=== PATIENT | female | born 1955 | race Caucasian/White ===

== ENCOUNTER 2016-06-15 18:09 | Emergency (ER) | payer MEDICAID ==
[2016-06-15 18:19] VITALS: BP 106/66; PULSE 78; RESP 18; TEMP 99; O2SAT 96
--- NOTE | 2016-06-15 18:32 | UCPHY ---
H & P Patient Type: Established Chief Complaint Nursing Narrative: door slammed on foot injury small toe and foot Time Seen by Provider: 06/15/16 18:22 HPI/ROS: Chief complaint: Right foot pain HPI: Patient had a heavy dorsally against her right foot earlier today. She has pain on her right pinky toe. Has been ambulating with some discomfort. Does have prior injuries to the same site. ROS: 10 point Review of Systems is negative except as noted in the HPI. Allergies: No known drug allergies Exam: General: Awake, alert, no acute distress Right lower extremity: Ankle has no tenderness, full range of motion without pain. Right foot she has tenderness over the proximal phalanx of her right 5th toe. She has no midfoot tenderness. Sensations intact. Cap refills less than 3 seconds. - Medical/Surgical History Other PMH: SIBO - Family History Significant Family History: No pertinent family hx - Social History Smoking Status: Never smoked Constitutional: Initial Vital Signs Temperature (C) 37.2 C 06/15/16 18:17 Heart Rate 78 06/15/16 18:17 Respiratory Rate 18 06/15/16 18:17 Blood Pressure 106/66 06/15/16 18:17 O2 Sat (%) 96 06/15/16 18:17 O2 Delivery Mode Room Air Allergies/Adverse Reactions: No Known Allergies Allergy (Unverified 08/12/15 09:01) Home Medications: Medication Instructions Recorded NK [No Known Home Meds] 08/12/15 Medical Decision Making - Diagnostics Imaging Results: Imaging Impressions Foot X-Ray 06/15/16 18:32 Impression: 1. Subacute anatomically aligned fracture proximal phalanx fifth toe. 2. Hallux valgus deformity and minimal osteoarthritis. Imaging: I viewed and interpreted images myself ED Course/Re-evaluation: X-ray shows a subacute fracture of her proximal phalanx. She will be placed in orthopedic shoe. Follow up with her primary care physician. Departure - Departure Disposition: Home, Routine, Self-Care Clinical Impression: Fractured toe Condition: Good Instructions: Toe Fracture (ED) Additional Instructions: Follow up with primary care physician in about a week. Referrals: NONE *PRIMARY CARE P,. [Primary Care Provider] - As per Instructions - PQRS PQRS Measurement: NA
== END 2016-06-15 19:37 | disposition home or self-care (01) ==
LOC: CED 18:09
DX: S92.514A Nondisplaced fracture of proximal phalanx of right lesser toe(s), initial encounter for closed fracture (principal); W23.1XXA Caught, crushed, jammed, or pinched between stationary objects, initial encounter; Y92.019 Unspecified place in single-family (private) house as the place of occurrence of the external cause
CPT/HCPCS: 73630-PO; 99214-PO; G0463-PO; L3260

== ENCOUNTER 2017-06-05 13:03 | Observation (INO) | payer MEDICAID ==
[2017-06-05] MEDS ORDERED: BACITRACIN ZINC 14.2 GM OINTTUBE TP ONE (13:42)
[2017-06-05] MEDS ORDERED: EPINEPHrine 30 MG/30 ML MDV (0.1 MG/0.1 ML) ONE (13:43)
[2017-06-05] MEDS ORDERED: LIDOCAINE 1% 300 MG/30 ML SDV ONE (13:43)
[2017-06-05] MEDS ORDERED: METHYLENE BLUE 0.5% 50 MG/10 ML AMP ONE (13:43)
--- NOTE | 2017-06-05 13:43 | PDANEPAE ---
ANE Past Medical History - Cardiovascular History Hx Hypertension: No Hx Arrhythmias: No Hx Chest Pain: No Hx Coronary Artery / Peripheral Vascular Disease: No Hx CHF / Valvular Disease: No Hx Palpitations: No - Pulmonary History Hx COPD: No Hx Asthma/Reactive Airway Disease: Yes Hx Recent Upper Respiratory Infection: No Hx Oxygen in Use at Home: No Hx Sleep Apnea: Yes Sleep Apnea Screening Result - Last Documented: Positive Pulmonary History Comment: asthma enviromental allergens - Neurologic History Hx Cerebrovascular Accident: No Hx Seizures: No Hx Dementia: No - Endocrine History Hx Diabetes: No Hypothyroid: No Hyperthyroid: No Obesity: no - Renal History Hx Renal Disorders: No - Liver History Hx Hepatic Disorders: No - Neurological & Psychiatric Hx Hx Neurological and Psychiatric Disorders: Yes Neurological / Psychiatric History Comment: depression,anxiety chronic - Cancer History Hx Cancer: No - Congenital Disorder History Hx Congenital Disorders: No - GI History GERD: moderate Hx Gastrointestinal Disorders: Yes Gastrointestinal History Comment: Gerd,small intestinal bacteria overgrowth - Other Health History Other Health History: nose bleeds. briuses easily. pt find it hard to sit up on own r/t back pain - Chronic Pain History Chronic Pain: Yes (lower back,neck,) - Surgical History Prior Surgeries: none ANE Review of Systems Review of Systems: - Exercise capacity METS (RN): 3 METS ANE Patient History - Allergies Allergies/Adverse Reactions: enviromental Allergy (Mild, Uncoded 05/31/17 12:30) Other-Enter Comments - Home Medications Home Medications: Multivitamins 05/31/17 [Last Taken 1 Week Ago ~05/29/17] Tylenol 325mg (*) 05/31/17 [Last Taken 06/04/17] - Anes Hx Anes Hx: no prior problems - Smoking Hx Smoking Status: Former smoker - Alcohol Use Alcohol Use: Rarely - Family Anes Hx Family Anes Hx: neg - N/A Family Hx Anesthesia Complications: none ANE Labs/Vital Signs - Vital Signs Height: 152.4 cm Weight: 58.967 kg ANE Physical Exam - Airway Neck exam: FROM Mallampati Score: Class 2 Mouth exam: poor dentition - Pulmonary Pulmonary: no respiratory distress, no rales or rhonchi, clear to auscultation - Cardiovascular Cardiovascular: regular rate and rhythym, no murmur, rub, or gallop ANE Anesthesia Plan Anesthesia Plan: general endotracheal anesthesia Total IV Anesthesia: No
[2017-06-05] MEDS ORDERED: LR 1,000 ML IV ONE (13:50)
[2017-06-05] MEDS ORDERED: LIDOCAINE 1% 2 ML INJ ID PRN (13:50)
--- NOTE | 2017-06-05 14:24 | CPEKG ---
Heart Rate: 67 RR Interval: 896 P-R Interval: 152 QRSD Interval: 74 QT Interval: 412 QTC Interval: 435 P [place]: 30 QRS [place]: 14 T Wave [place]: 42 EKG Severity - NORMAL ECG - EKG Impression: SINUS RHYTHM Electronically Signed By: Violeta Long 05-Jun-2017 19:27:45
[2017-06-05] MEDS ORDERED: ceFAZolin 2 GM/SWFI 2 GM/20 ML SYR IVP ONE (15:12)
--- NOTE | 2017-06-05 15:16 | PDHPUP ---
History & Physical Update H&P update statement: This history and physical update is based on an assessment of the patient which was completed after admission or registration (within 24 hours), but prior to the surgery/procedure. H&P update: H&P reviewed & patient examined (EKG done preop, ok per anesthesia)
[2017-06-05] MEDS ORDERED: MIDAZOLAM 2 MG/2 ML VIAL IVP ONE (15:23)
[2017-06-05] MEDS ORDERED: MIDAZOLAM 2 MG/2 ML VIAL ONE (15:24)
[2017-06-05] MEDS ORDERED: fentaNYL 100 MCG/2 ML INJ ONE ×2 (15:33→17:14)
[2017-06-05] MEDS ORDERED: PROPOFOL 200 MG/20 ML VIAL ONE (15:36)
[2017-06-05] MEDS ORDERED: LIDOCAINE 2% 5 ML SDV ONE (15:37)
[2017-06-05] MEDS ORDERED: ROCURONIUM 50 MG/5 ML VIAL ONE (15:38)
[2017-06-05] MEDS ORDERED: ONDANSETRON 4 MG/2 ML VIAL ONE (15:38)
[2017-06-05] MEDS ORDERED: DEXAMETHASONE 4 MG/ML VIAL ONE ×2 (15:39)
[2017-06-05] MEDS ORDERED: PHENYLEPHRINE HCL 100 MCG/ML SYR ONE (15:51)
[2017-06-05] MEDS ORDERED: HYDROCODONE/APAP 5/325 TAB PO PRN (16:29)
[2017-06-05] MEDS ORDERED: LR 500 ML IV PRN (16:29)
[2017-06-05] MEDS ORDERED: oxyCODONE IR 5 MG TAB PO PRN (16:29)
[2017-06-05] MEDS ORDERED: MEPERIDINE 25 MG/ML SYR IVP PRN (16:29)
[2017-06-05] MEDS ORDERED: fentaNYL 100 MCG/2 ML INJ IVP PRN (16:29)
[2017-06-05] MEDS ORDERED: epHEDrine SULFATE 10 MG/ML SYR IVP PRN (16:29)
[2017-06-05] MEDS ORDERED: PROMETHAZINE HCL 25 MG/ML INJ IVP PRN (16:29)
[2017-06-05] MEDS ORDERED: NALOXONE HCL 0.4 MG/ML INJ IVP PRN (16:29)
[2017-06-05] MEDS ORDERED: PHENYLEPHRINE HCL 100 MCG/ML SYR IVP PRN (16:29)
[2017-06-05] MEDS ORDERED: ONDANSETRON 4 MG/2 ML VIAL IVP PRN ×2 (16:29→19:31)
[2017-06-05] MEDS ORDERED: ACETAMINOPHEN 500 MG TAB PO PRN (16:29)
[2017-06-05] MEDS ORDERED: NEOSTIGMINE METHYLSULFATE 3 MG/3 ML SYR ONE (16:58)
[2017-06-05] MEDS ORDERED: GLYCOPYRROLATE 0.2 MG/1 ML VIAL ONE ×2 (16:59)
[2017-06-05] MEDS ORDERED: ESMOLOL HCL 100 MG/10 ML VIAL IV ONE (17:12)
--- NOTE | 2017-06-05 17:21 | POSTOPPROG ---
Post Op Note Date of Operation: 06/05/17 Surgeon: America Hazel Anesthesiologist: Luiz Wright MD Anesthesia: GET(General Endotracheal) Pre-op Diagnosis: nasal obstruction, RACQUEL Post-op Diagnosis: same Procedure: septoplasty, SMR turbs, endoscopy Findings: DNS L, ITH B, SALES REPRESENTATIVE SALES MANAGER clear Inf/Abcess present in the surg proc area at time of surgery?: No Depth: Superfical (Skin SQ) EBL: Minimal Complications: none apparent
--- NOTE | 2017-06-05 17:28 | POSTANESTH ---
Post Anesthetic Evaluation Cardiovascular Status: Normal, Stable Respiratory Status: Normal, Stable Level of Consciousness/Mental Status: Can Participate in Eval Pain Control: Adequate, Prn Tx Ordered Nausea/Vomiting Control: Adequate, Prn Tx Ordered Complications Possibly Related to Anesthesia: None Noted
--- NOTE | 2017-06-05 18:29 | CPEKG ---
Heart Rate: 93 RR Interval: 645 P-R Interval: 160 QRSD Interval: 80 QT Interval: 376 QTC Interval: 468 P [place]: 47 QRS [place]: 25 T Wave [place]: 16 EKG Severity - NORMAL ECG - EKG Impression: SINUS RHYTHM Electronically Signed By: Violeta Long 05-Jun-2017 19:27:54
[2017-06-05] MEDS ORDERED: ACETAMINOPHEN 325 MG TAB PO PRN (19:31)
[2017-06-05] MEDS ORDERED: NITROGLYCERIN 0.4 MG BTL SL PRN (19:33)
--- NOTE | 2017-06-05 20:03 | GHP ---
[f rep st] HISTORY AND PHYSICAL DATE OF ADMISSION: 06/05/2017 CHIEF COMPLAINT: Chest pain. HISTORY OF PRESENT ILLNESS: The patient is a 62-year-old female, who was having sinus surgery with Radha Hazel today. While in recovery, she started to complain of some chest pain. She describes it a s a left-sided chest pressure, which she still has at this time. She has had this pain in the past, although this episode is much more severe than her typical. She may have had a cardiac stress test m any years ago. This chest pressure gets worse with exertion such as walking up a flight of stairs. It does not radiate. She denies any shortness of breath. The pain is worse with deep inspiration. In the past, she had always attributed it to her lung disease and did not think it was her heart. PAST MEDICAL HISTORY: 1. Obstructive sleep apnea, CPAP intolerant. 2. COPD. 3. Small bowel bacterial overgrowth. MEDICATIONS: Please see computer record for full detailed list. ALLERGIES: No known drug allergies. SOCIAL HISTORY: Former smoker, quit many years ago. No alcohol. She lives with her daughter. REVIEW OF SYSTEMS: Complete review of systems obtained. Review of systems negative for constitution al, HEENT, GI, pulmonary, cardiovascular, , hematology, skin, musculoskeletal, endocrine, psych, ex cept for positives and negatives as in HPI. FAMILY HISTORY: Reviewed and noncontributory to presenting complaint. PHYSICAL EXAMINATION: GENERAL: Well-developed, well-nourished female in no acute distress. VITAL S IGNS: Temperature 36.8, pulse 94, blood pressure 128/75, saturating 96% on 10 L. She is still in an esthesia recovery. EYES: Normal conjunctivae. Pupils equal and react light. ENT: Normal ears and nose. Hearing intact. Normal teeth. Oropharynx moist. NECK: Trachea midline. No thyromegaly. CHEST: Normal respiratory effort. LUNGS: Clear to auscultation bilaterally. CARDIOVASCULAR: Regu lar rate and rhythm. No murmur. No extremity edema. ABDOMEN: Soft, nontender. No hepatosplenomeg helena. SKIN: Warm, dry, intact without rash. MUSCULOSKELETAL: No cyanosis or clubbing. Strength 5/ 5 upper and lower extremities. NEUROLOGIC: Cranial nerves intact. Normal sensation to light touch. PSYCH: Awake, alert, and oriented x3. Normal mood and affect. Normal judgment and insight. Norm al memory. IMAGING PROCEDURE: EKG reviewed by me. My personal interpretation is normal sinus rhythm, no ST-T w ave changes. Troponin is negative. This case was discussed with Dr. Hazel. She planned for outpa tient procedure with prolonged recovery observation due to obstructive sleep apnea. ASSESSMENT AND PLAN: 1. Chest pain. She has a concerning history of chest heaviness that gets worse with exertion and be tter with rest. Now having recurrence of this pain postoperatively worse than her baseline. Her EKG does not show any evidence of ST-elevation myocardial infarction or acute ischemic change. We will observe her and get serial troponins. We will try to get her chest pain-free with sublingual nitrogl ycerin and IV morphine as needed. I will hold off on aspirin due to her very recent postoperative st ate. We will check a lipid panel in the morning. The chest pain also has a pleuritic component. Wi ll check a chest x-ray and a D-dimer. Could consider working her up for pulmonary embolism. We will check a lipid panel in the morning. 2. Obstructive sleep apnea. She has been intolerant of CPAP but hopeful that this sinus surgery may improve that. 3. Status post sinus surgery. This was discussed with Dr. Hazel. This is an outpatient procedure and she can discharge home once her cardiac workup is complete. 4. Chronic obstructive pulmonary disease, not on home oxygen. She has quit tobacco. She does not a ppear to be having an exacerbation at this time. CODE STATUS: Full. ADMISSION STATUS: Will admit to observation. Reevaluate tomorrow for ongoing need for hospitalizati on. DVT PROPHYLAXIS: She is low risk and recently postop, so we will hold off on pharmacologic prophylax is at this time. /[id number]/MODL
[2017-06-05] MEDS: oxyCODONE IR 5 MG TAB PO PRN ×2 (21:22→22:15)
[2017-06-06 04:50] LABS: PLATELET COUNT 295 10^3/uL (150-400)
[2017-06-06] MEDS: oxyCODONE IR 5 MG TAB PO PRN ×2 (05:51→14:07)
--- NOTE | 2017-06-06 10:22 | HOSPPROG ---
Hospitalist Progress Note Assessment/Plan: 62-year-old admitted by Dr. Gonzalez for sinus surgery developed chest pain postop and is admitted for observation for further evaluation of that. She continues to have some pleuritic chest pain with deep breathing. This is been present previous to this admission intermittently that she 0 has always attributed to her lungs. She has remote history of asthma and was on inhalers briefly while living in [place] # chest pain. Ongoing symptoms with negative troponins and normal EKG makes this unlikely to be cardiac, however she will get an evaluation prior to discharge. She has a negative D-dimer which makes symptomatic PE unlikely as well * Nuclear stress test scheduled later today * Will need to follow up with her primary care provider for further evaluation of her chest pain * Will do a trial of proton pump inhibitor for possible esophagitis # history of COPD # obstructive sleep apnea, intolerant of CPAP Subjective: Patient has a migraine and will let me turn the lights on, she complains of some discomfort in her anterior chest with deep breathing. Objective: Vital Signs Temp Pulse Resp BP Pulse Ox 37.2 C 76 16 98/64 L 96 06/06/17 08:00 06/06/17 08:00 06/06/17 08:00 06/06/17 08:00 06/06/17 08:00 Laboratory Results 06/06/17 04:18 06/06/17 04:18 06/05/17 06/06/17 06/07/17 05:59 05:59 05:59 Intake Total 1950 Output Total 20 Balance 1930 - Physical Exam Constitutional: chronically ill appearing Eyes: PERRL, EOMI Ears, Nose, Mouth, Throat: moist mucous membranes Cardiovascular: regular rate and rhythym, no murmur, rub, or gallop Respiratory: no respiratory distress, clear to auscultation Gastrointestinal: normoactive bowel sounds, soft, non-tender abdomen Genitourinary: no bladder fullness Skin: normal color Neurologic: AAOx3 Psychiatric: interacting appropriately, not anxious ICD10 Worksheet Patient Problems: Problems Problem Status Onset Chest pain Acute - ICD10 Problem Qualifiers (1) Chest pain Qualifiers: Chest pain type: other chest pain Qualified Code(s): R07.89 - Other chest pain; R07.8 - Other chest pain
[2017-06-06] MEDS ORDERED: PANTOPRAZOLE SODIUM 40 MG TAB PO SCH (10:30)
[2017-06-06 13:59] VITALS: BP 98/58
--- NOTE | 2017-06-06 15:13 | ASDISCHSUM ---
Discharge Information Plan Status:Home with No Needs Medically Cleared to Leave:06/06/2017 Discharge Date:06/06/2017 CM D/C Disposition:Home, Routine, Self-Care ADT D/C Disposition: Projected Discharge Date:06/06/2017 Transportation at D/C: Discharge Delay Reason: Follow-Up Date:06/06/2017 Discharge Slot: Final Diagnosis: Placement Information Patient Contact Information Contact Name:NEGRO Relationship:Daughter Address:[address] [place] [address] [id number] Work Phone: City:[place] Alternate Phone: State/Zip Code:[place] [address] Email: Financial Information Financial Class:Medicaid Primary Plan 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 Comorbidities - select Answers: Chronic pulmonary disease all that apply Other Notes: Small bowel bacterial overgrowth, obstructive sleep apnea, DPAP intolerant # of Emergency department Answers: 1-2 visits in the last 6 months Score: 4 Date Signed: 06/06/2017 03:09 PM Electronically Signed By:Naya Ruggiero RN Case Management Discharge Plan Note Case Management Discharge Discharge Order Complete? Answers: Yes Patient to Obtain Answers: Independently Medications Discharge Comments Notes: 06/06/2017 Case Management Note Met w/pt during rounds this morning. Pt was admitted for chest pain after undergoing a sinus surgery. There are no case management d/c needs identified. Pt was living independently prior to admission. Case Management d/c poc: independent with follow up as directed. Date Signed: 06/06/2017 03:12 PM Electronically Signed By:Naya Ruggiero RN Intervention Information
--- NOTE | 2017-06-06 15:22 | GDS ---
[f rep st] DISCHARGE SUMMARY DIAGNOSES: 1. Atypical chest pain. 2. Sinus surgery. 3. History of reactive airways disease. 4. Chronic obstructive pulmonary disease. 5. Obstructive sleep apnea, continuous positive airway pressure intolerant. 6. History of small bowel bacterial overgrowth. PROCEDURES DONE: Sinus surgery. HOSPITAL COURSE: The patient is a 62-year-old with a history noted above, who is admitted by Dr. Flavio pepper for a day surgery for sinus surgery. Postoperatively, she was complaining of some pleuritic aashish st pain. She was observed overnight. Her telemetry remained normal. She had a nonischemic EKG and her troponins were negative. She is essentially ruled out for any ischemia and she continues to have pleuritic chest pain, which makes this unlikely to be cardiac. She also had a negative D-dimer. Up on further questioning, she said she has had intermittent pain like this in the past that she has alw ays attributed to her lungs. She does have a remote history of asthma. Other etiologies could inclu de GE reflux disease. She was scheduled to have a nuclear stress test on the evening of discharge; h owever, she refused it, and at that point was offered to go home with close followup stress test as a n outpatient, which she is agreeable to. Given the fact that her troponins have remained negative an d she has a nonischemic EKG, she is low risk for a cardiac event. CONDITION ON DISCHARGE: Good. Vital signs are stable. DISCHARGE MEDICATIONS: Please see discharge medication form. I did add Protonix 40 mg twice daily f or possible GE reflux disease, which she can take and follow up with her primary care provider. FOLLOW-UP: She should follow up with her primary care provider within the next few days for her ches t pain; again, she can see if the Protonix helps her symptoms. Additionally, I have set up to [facility] a followup nuclear stress test as an outpatient. They will call her with the date. Copy requested to: Collins Nicole In, IVONNE /[id number]/MODL
[2017-06-06] MEDS ORDERED: CEPHALEXIN 500 MG CAP PO SCH (16:00)
--- NOTE | 2017-06-07 10:40 | SOAPPROG ---
SOAP Progress Note Assessment/Plan: Assessment: Postdated note. Pt seen yesterday, 06/06. Admitted by hospitalist team post op d /t chest pain, EKG, troponins have been negative. Pt states c/o pain though notes it's mainly when she breathes out. She has some minimal ooze from nose, nothing excessive. Has a MINER but not much pain in the actual nose. Ok to d/c from ENT standpoint, already had rx and d/c instructions from surgery. RTC 1 week Plan: 06/07/17 10:38 Subjective: Pt doing ok, c/o MINER, mild congestion and continued chest pain, mainly when breathing out Objective: AFVSS NC in place drip pad in place, no active bleeding no resp distress Vital Signs Temp Pulse Resp BP Pulse Ox 37.1 C 73 14 98/58 L 94 06/06/17 15:55 06/06/17 13:45 06/06/17 13:45 06/06/17 13:45 06/06/17 13:45 Laboratory Results 06/06/17 04:18 06/06/17 04:18 06/06/17 06/07/17 06/08/17 05:59 05:59 05:59 Intake Total 1950 Output Total 20 Balance 1930 ICD10 Worksheet Patient Problems: Problems Problem Status Onset Chest pain Acute
--- NOTE | 2017-06-07 10:41 | GOP ---
[f rep st] OPERATIVE REPORT DATE OF OPERATION: 06/05/2017 SURGEON: America Hazel MD ANESTHESIA: General. PREOPERATIVE DIAGNOSIS: 1. Nasal obstruction. 2. Mild sleep apnea. POSTOPERATIVE DIAGNOSIS: 1. Nasal obstruction. 2. Mild sleep apnea. PROCEDURE PERFORMED: 1. Endoscopically assisted septoplasty. 2. Submucous resection of the inferior turbinates. 3. Nasal endoscopy. FINDINGS: The patient was found to have a significantly deviated septum to the left, and she was not ed to have enlarged turbinates inferiorly bilaterally. ESTIMATED BLOOD LOSS: Minimal. INDICATIONS: The patient is a very pleasant 62-year-old woman who has a history of mild sleep apnea as well as nasal obstruction. On exam, she was noted to have a deviated nasal septum to the left as well as enlarged turbinates. She had done a trial of nasal steroids and saline, and had no significa nt benefits, so it was felt she would benefit from the above procedure. DESCRIPTION OF PROCEDURE: The patient was first seen in the preoperative area where informed consent was obtained. She was then brought back to the operating room where Anesthesia sedated and intubate d her. The bed was turned 90 degrees. She was prepped and draped in a normal fashion. Epi soaked p ledgets were placed within the nares bilaterally. Once these had sufficient time to act, these were removed and then about 6 mL of 1% lidocaine with 1:100,000 epinephrine was injected into the septum o n both sides, as well as the head of the inferior turbinate bilaterally. Once this had adequate affe ct, a universal time-out protocol was performed to confirm the patient and the procedure, and then I turned my attention to the nose. A 0-degree scope was used for evaluation into the nasal cavity, both sides. The right side was fairl y patent, although she did have inferior turbinate hypertrophy on this side, and then the left side w as significantly obstructed secondary to a very deviated nasal septum. At this point, the 0-degree scope was removed and a left-sided hemitransfixion incision was made and then the mucoperichondrial flap was elevated off the underlying cartilage with a caudal instrument. Her cartilage was very weak and had an acute angled curve where the spur was. The flap was elevated off the bone and the cartilage of the spur, and then an incision was made at the caudal about a centi meter further back from the hemitransfixion incision. Then, a straight Cesar-Cut was used to take a co uple bites from the cartilage, thereby giving me visualization of the other side. The other mucoperi chondrial flap was elevated off as well of the cartilage and bone. Once this was done, multiple hand instruments were used to remove the cartilage until it was back to the bony cartilaginous junction. A 0-degree scope was then used at this point to help with elevation further posteriorly along the kenzie ne as well as along the spur on the right side of the flap. Once this was all done, a Cesar-Cut double-action rongeur was used for removal of any bony obstructions . I did take care to leave a 10 mm strut caudally and dorsally for structure of the nose. Once the spur was completely isolated, an osteotome was used to remove the spur from the nasal spine, and this was removed from the hemitransfixion incision. At this point, the 0-degree scope was used to visualize the nasal cavity on both sides. She had sign ificantly more patency on the left and I was able to access the nasopharynx easily. So at this point , a 5-0 plain gut on a Samm needle was used to place quilting sutures [id number] the septum . A 4-0 chromic was used to close the hemitransfixion incision. At this point, the 2 mm turbinate blade was placed on the [employer] handpiece, and then a small stab incision was made first on the left into the head of the inferior turbinate and then a submucous rese ction was performed along the length of this under direct visualization using a 0-degree scope. Once this was done, the blade was removed and then we did the same thing on the right side. At this point, anterior rhinoscopy was used to perform an infracture and then outfracture of the infe rior turbinate on both sides. Lastly, the 0-degree scope was then used to evaluate the posterior aspect of the turbinates as well a s the nasopharynx. The posterior aspect was still slightly large and so, using the suction cautery o n an intermediate setting, I shrunk down the posterior most portion of the inferior turbinate, thereb y giving more patency posteriorly. This was on both sides. All instruments were removed. The nasal cavity was irrigated out copiously with normal saline and th en suctioned clear. An OG suction was used to suction out the stomach as well as the pharynx. I the n used Mai splints that were cut to size, placed these on the either side of the septum and then th rupert were sutured into place using a 3-0 Prolene. At this point, all pledget and instrument counts we re correct. The patient was turned back over to Anesthesia where she was awakened, extubated, and ta alma to the PACU in stable condition. There were no complications and she tolerated the procedure ankia leonardo. COMPLICATIONS: None. /[id number]/MODL
== END 2017-06-06 17:04 | disposition home or self-care (01) ==
LOC: FSGY 13:03 → F2W 19:27
PROVIDERS: ADMIT Internal Medicine; ATTEND Otolaryngology
PROC: 09BL8ZZ Excision of Nasal Turbinate, Via Natural or Artificial Opening Endoscopic (ICD-10-PCS; principal; 2017-06-05 14:45)
PROC: 09BM4ZZ Excision of Nasal Septum, Percutaneous Endoscopic Approach (ICD-10-PCS; principal; 2017-06-05 14:45)
DX: J34.2 Deviated nasal septum (principal); J34.3 Hypertrophy of nasal turbinates; R07.89 Other chest pain; G47.33 Obstructive sleep apnea (adult) (pediatric); J45.909 Unspecified asthma, uncomplicated; J44.9 Chronic obstructive pulmonary disease, unspecified; A04.9 Bacterial intestinal infection, unspecified; F41.8 Other specified anxiety disorders; Z87.891 Personal history of nicotine dependence
CPT/HCPCS: 30140; 30520; 71045; 93005; G0378; J0171; J0690; J1100; J2250; J2370; J2405; J2704; J2710; J3010; Q9968

== ENCOUNTER → 2017-06-14 | Outpatient (CLI) | payer MEDICAID | LOC: FIMAGING 12:52 | PROVIDERS: ATTEND Otolaryngology | DX: R06.02 Shortness of breath (principal) ==